=== PATIENT | female | born 1975 | race Asian ===

== ENCOUNTER 2017-12-10 15:03 | Emergency (ER) | payer OTHER ==
[~2017-12-10] VITALS: Ht 157.5 cm; Wt 45.4 kg
[2017-12-10 15:30] VITALS: BP 124/87
[2017-12-10 17:29] VITALS: BP 125/83
--- NOTE | 2017-12-10 17:59 | Emergency Room Report ---
History of Present Illness General Chief Complaint: General Complaint Source: Patient Present Illness HPI The patient is a 42-year-old female presenting for needle stick injury. She is an employee of this hospital. She states that she was withdrawing the needle from a patient and struck her left index finger. She did notice blood from the injury. She immediately clean the area several times with soap and water. She denies any pain at this time. She states that she did check the patient's history and did not find medical problems including hepatitis or HIV. Patient History Past Medical History: see triage record Pertinent Family History: none Now: No Reviewed Nursing Documentation: PMH: Agreed; PSxH: Agreed Nursing Documentation-PMH Hx Hypertension: Yes Review of Systems All Other Systems: negative except mentioned in HPI Physical Exam Vital Signs Date Time Temp Pulse Resp B/P (MAP) Pulse Ox O2 Delivery O2 Flow Rate FiO2 12/10/17 15:15 98.0 79 124/87 98 Room Air 98.1 Sp02 EP Interpretation: reviewed, normal General Appearance: no apparent distress, alert, GCS 15, non-toxic Head: normocephalic, atraumatic Musculoskeletal: back normal, gait/station normal, normal range of motion, non- tender Neurologic: alert, oriented x3, responsive, motor strength/tone normal, sensory intact, speech normal Psychiatric: judgement/insight normal, memory normal, mood/affect normal, no suicidal/homicidal ideation Skin: other - punctate lesion L index finger. No bleeding. No erythema Medical Decision Making PA Attestation Dr. Miller is my supervising physician. Patient management was discussed with my supervising physician Diagnostic Impression: Primary Impression: Needle stick injury ER Course The patient is a 42-year-old female presenting for needle stick injury. Differential diagnosis considered but not limited to: Exposure to blood-borne pathogens such as hepatitis or HIV, wound infection, among others Physical exam: Afebrile. No apparent distress Left index finger has small punctate lesion at distal end. No bleeding. No surrounding erythema. Nontender Labs were drawn for hepatitis antibodies and HIV The patient will follow-up. ER precautions given Last Vital Signs Date Time Temp Pulse Resp B/P (MAP) Pulse Ox O2 Delivery O2 Flow Rate FiO2 12/10/17 15:30 98.1 124/87 98 Room Air 98.1 12/10/17 15:15 79 Status: improved Disposition: HOME, SELF-CARE Condition: Improved Referrals: NOT CHOSEN IPA/MD,REFERRING (PCP) Patient Instructions: Needle Stick Injury Additional Instructions: I discussed my findings with the patient. All questions and concerns have been answered. Treatment and medication compliance have been addressed. I advised the patient that they need to follow up with PMD in 3-5 days. Return to ED if symptoms worsen, new symptoms arise, or if needed for any reason. Patient verbalized understanding of discharge instructions. AMBIKA STUART Dec 10, 2017 17:59
== END 2017-12-10 17:29 | disposition home or self-care (01) ==
LOC: EMR 15:16
DX: S61.231A Puncture wound without foreign body of left index finger without damage to nail, initial encounter (principal); W46.0XXA Contact with hypodermic needle, initial encounter; Y92.239 Unspecified place in hospital as the place of occurrence of the external cause; Y99.0 Civilian activity done for income or pay; I10 Essential (primary) hypertension
CPT/HCPCS: 86703; 86803; 87517; 99283